=== PATIENT | female | born 1980 | race Two or more races ===

== ENCOUNTER 2016-10-14 18:48 | Emergency (ER) | payer OTHER ==
[~2016-10-14] VITALS: Ht 157.5 cm; Wt 53.5 kg
--- NOTE | 2016-10-14 19:25 | NUR ---
36 YO FEMALE BB SELF. PT IS ALERT X 3, C/O EPIGASTRIC ABD PAIN, BURNING LIKE AND RIGHT LOWER ABD PAIN, THROBBING LIKE PAIN. PT IS AMBULATED TO ER BED, SKIN WARM AND DRY, RR EVEN AND UNLABORED. PT GOWNED, PLACED ONC ARDIAC MONITOR, WILL CONTINUE TO MONITOR
[2016-10-14] MEDS ORDERED: IV NS 0.9% 1,000 ML ONE (19:39)
[2016-10-14] MEDS ORDERED: KETOROLAC TROMETHAMINE INJ 30 MG/ML VIAL ONE (19:39)
[2016-10-14] MEDS ORDERED: ONDANSETRON HCL/PF 4 MG/2 ML VIAL ONE (19:39)
[2016-10-14 19:50] LABS: BASOPHILS # (AUTO) 0.1 /CMM (0.0-0.2); BASOPHILS % (AUTO) 0.8 % (0.0-2.0); EOSINOPHILS # (AUTO) 0.2 /CMM (0.0-0.7); HEMATOCRIT 42 % (33-45); HEMOGLOBIN 13.9 g/dL (11.5-14.8); LYMPHOCYTES # (AUTO) 1.7 /CMM (0.8-4.8); LYMPHOCYTES % (AUTO) 18.2 % (20.0-44.0); MEAN CORPUSCULAR HEMOGLOBIN 31 PG (26.0-33.0); MEAN CORPUSCULAR HGB CONC 34 g/dl (31.0-36.0); MEAN CORPUSCULAR VOLUME 93 fL (82-100); MONOCYTES # (AUTO) 0.6 /CMM (0.1-1.30); PLATELET COUNT (AUTO) 349 /CMM (150-450); RDW COEFFICIENT OF VARIATION 12.1 (11.5-15.0); RED BLOOD CELL COUNT(AUTO) 4.48 MIL/uL (4.0-5.2); WHITE BLOOD COUNT (AUTO) 9.6 K/uL (4.3-11.0)
--- NOTE | 2016-10-14 19:50 | NUR ---
20G LEFT AC IV STARTED, BLOOD SAMPLE OBTAINED AND SENT TO LAB. MEDICATED PT ORDERED
[2016-10-14 19:53] LABS: APPEARANCE,URINE Clear (CLEAR); BILIRUBIN,URINE Negative (NEGATIVE); BLOOD, URINE Negative Ery/uL (NEGATIVE); COLOR,URINE Yellow (YELLOW); KETONES,URINE Negative (NEGATIVE); LEUKOCYTE ESTERASE ,URINE Negative (NEGATIVE); NITRITE, URINE Negative (NEGATIVE); PROTEIN,URINE Negative (NEGATIVE); UGLUCOSE Negative (NEGATIVE); UROBILINOGEN,URINE 0.2 EU/dL (0.2)
[2016-10-14] MEDS ORDERED: KETOROLAC TROMETHAMINE INJ 30 MG/ML VIAL IV ONE (20:00)
[2016-10-14] MEDS ORDERED: ONDANSETRON HCL/PF 4 MG/2 ML VIAL IVP ONE (20:00)
[2016-10-14] MEDS ORDERED: IV NS 0.9% 1,000 ML BAG IV ONE (20:00)
[2016-10-14 20:08] LABS: ALBUMIN 4.3 g/dL (3.4-5.0); BILIRUBIN,DIRECT 0.1 mg/dL (0.0-0.2); BILIRUBIN,TOTAL 0.4 mg/dL (0.2-1.0); CALCIUM, SERUM 8.8 mg/dL (8.5-10.1); CREATININE 0.9 mg/dL (0.6-1.3); POTASSIUM 3.5 mmol/L (3.5-5.1); TOTAL PROTEIN, SERUM 7.5 g/dL (6.4-8.2)
[2016-10-14 20:19] LABS: PREGNANCY TEST URINE QUAL NEGATIVE (NEGATIVE)
[2016-10-14 21:00] VITALS: BP 111/71
--- NOTE | 2016-10-14 21:00 | NUR ---
Patient discharged to home in stable condition. Written and verbal after care instructions given. Patient verbalizes understanding of instruction.IV removed. Catheter intact and site benign. Pressure and 4x4 applied to site. No bleeding noted. PT ambulatory with a steady gait VITAL SIGNS WITHIN NORMAL LIMITS.
== END 2016-10-14 21:01 | disposition home or self-care (01) ==
LOC: ER 18:51
DX: R10.13 Epigastric pain (principal); R10.30 Lower abdominal pain, unspecified; R11.0 Nausea
CPT/HCPCS: 36415; 74176; 80048; 80076; 81001; 83690; 84703; 85025; 96361; 96374; 96375; 99285; A4606; J1885; J2405; J7030; Z7610; 81000-TC

== ENCOUNTER 2016-10-28 02:08 | Emergency (ER) | payer SELFPAY ==
[~2016-10-28] VITALS: Ht 157.5 cm; Wt 52.2 kg
[2016-10-28 02:40] VITALS: BP 116/79
[2016-10-28] MEDS ORDERED: CIPROFLOXACIN HCL 0.3% 5 ML BOTTLE LEFTEYE SCH (03:00)
[2016-10-28] MEDS ORDERED: GENTAMICIN OPTH SOLN 0.3% 5 ML BOTTLE ONE (03:05)
[2016-10-28] MEDS ORDERED: GENTAMICIN OPTH OINT 0.3% 3.5 G TUBE ONE (03:07)
[2016-10-28] MEDS ORDERED: GENTAMICIN OPTH OINT 0.3% 3.5 G TUBE OP ONE (03:30)
== END 2016-10-28 03:20 | disposition home or self-care (01) ==
LOC: ER 02:09
DX: H16.002 Unspecified corneal ulcer, left eye (principal)
CPT/HCPCS: 99283; A4606; Z7610

== ENCOUNTER 2016-12-03 19:39 | Emergency (ER) | payer OTHER ==
[~2016-12-03] VITALS: Ht 157.5 cm; Wt 52.2 kg
[2016-12-03] MEDS: ALBUTEROL FS 2.5 MG/3 ML VIAL.NEB NEB ONE (20:34)
[2016-12-03] MEDS ORDERED: ALBUTEROL FS 2.5 MG/3 ML VIAL.NEB ONE (20:36)
[2016-12-03 21:37] VITALS: BP 118/67
== END 2016-12-03 21:37 | disposition home or self-care (01) ==
LOC: ER 19:45
DX: J20.9 Acute bronchitis, unspecified (principal)
CPT/HCPCS: 71010-TC; A4606; Z7610